=== PATIENT | female | born 1975 | race Caucasian/White ===

== ENCOUNTER 2023-03-10 19:24 | Emergency (ER) | payer BC, SELFPAY ==
[2023-03-10 19:44] VITALS: BP 146/91; PULSE 88; RESP 16; TEMP 36.7; O2SAT 96; BMI 23.4
[2023-03-10 19:55] LABS: Appearance Urine Clear (Clear); Bilirubin Urine Negative (Negative); Blood Urine Negative (Negative); Color Urine Yellow (Yellow); Glucose Urine Negative (Negative); Ketones Urine 1+ (Negative); Leukocyte Esterase Urine Negative (Negative); Nitrite Urine Negative (Negative); Protein Urine Negative (Negative); Urobilinogen Urine 0.2 (0.2-1.0)
--- NOTE | 2023-03-10 19:59 | CRLHL7_ITS ---
For Patients: As a result of the Century Cures Act, medical imaging exams and procedure reports are released immediately into your electronic medical record. You may view this report before your referring provider. If you have questions, please contact your health care provider. INDICATION: Left lower quadrant pain. TECHNIQUE: CT abdomen and pelvis acquired with 74 cc Isovue 370 IV contrast. COMPARISON: None. FINDINGS: Lower chest: Mild bibasilar atelectasis. Liver: Unremarkable. Normal in size and attenuation. No suspicious masses. Gallbladder and bile ducts: Unremarkable. No stones or inflammation. No biliary ductal dilatation. Spleen: Unremarkable. Normal in size. No masses. Adrenal glands: Unremarkable. No nodules. Pancreas: Unremarkable. No mass or inflammation. Kidneys: Unremarkable. No suspicious masses, stones, or hydronephrosis. GI tract: Normal in caliber. No evidence of obstruction. Scattered colonic diverticula in the distal colon. Minimal fat stranding adjacent to the proximal sigmoid colon. Normal appendix. Lymph nodes: No lymphadenopathy. Vasculature: Minimal scattered atherosclerotic calcifications. Omentum/Peritoneum/Abdominal Wall: Unremarkable. No sign of mass or infiltration. No free air or significant free fluid. Pelvis: Unremarkable. IUD in place. Bones: Unremarkable for age. IMPRESSION: Scattered colonic diverticula in the distal colon with minimal fat stranding adjacent to the proximal sigmoid colon, likely reflecting mild diverticulitis. Please note that all CT scans at this facility use dose modulation, iterative reconstruction, and/or weight-based dosing when appropriate to reduce radiation dose to as low as reasonably achievable. Dictated by Yo Torre MD @ 03/10/2023 9:15:41 PM (Electronically Signed)
[2023-03-10] MEDS: ONDANSETRON 2 MG/ML inj 4 MG IVP (20:28)
[2023-03-10] MEDS: KETOROLAC 30 MG/ML inj IVP (20:29)
[2023-03-10] MEDS: 0.9 % SODIUM CHLORIDE 1000 ml 1,000 ML IV (20:29)
[2023-03-10 20:41] LABS: Basophils Absolute Auto 0.04 K/uL (0.00-0.30); Basophils Percent Auto 0.4 % (0.0-3.0); Eosinophils Absolute Auto 0.04 K/uL (0.00-0.50); Eosinophils Percent Auto 0.4 % (0.0-7.0); Hematocrit 42.6 % (33.0-51.0); Hemoglobin* 14.7 gm/dL (12.0-16.0); Immature Granulocytes Abs Auto 0.01 K/uL (0.00-0.30); Immature Granulocytes Pct Auto 0.1 %; Lymphocytes Percent Auto 18.5 % (20-44); Mean Corpuscular HGB Conc 35 gm/dL (32-36); Mean Corpuscular Hemoglobin 35 pg (26-34); Mean Corpuscular Volume 101 fL (80-100); Monocytes Percent Auto 7.2 % (0.0-11.0); Neutrophils Percent Auto 73.4 % (42.0-72.0); Platelet Count* 223 K/uL (140-440); RDW Coefficient of Variation % 11.4 % (11.5-15.5); Red Blood Count 4.22 m/uL (4.00-5.20); White Blood Count* 10.62 K/uL (4.50-11.00)
[2023-03-10 20:42] LABS: Slide Review Reflex No
--- NOTE | 2023-03-10 20:42 | ED_ITS ---
HPI - Abdominal Pain General Date Seen: 03/10/23 Chief Complaint: Abdominal Pain Stated Complaint: Left side pain with nausea Time Seen by Provider: 03/10/23 19:51 Source: patient Mode of arrival: ambulatory Limitations: no limitations History of Present Illness HPI narrative: Patient is a 48-year-old female presents here with approximately a 5-6 week history of left lower quadrant pain it comes and goes but has been really consistent for the last 5 days, doubles her over and she notices when she walks, she says she feels chilled but is noted no overt fevers, her bowel movements been normal with no diarrhea noted. She has no history of vomiting but has felt some nausea. Denies any significant back pain, there is no radiation of numbness tingling to her lower extremities, she denies any vaginal discharge, or bleeding, associated with this. She has no history of a colonoscopy but her doctor has told her that she now qualifies for this and should do this. She tried some ibuprofen a couple days ago and did really notice a difference with the discomfort. She presents [facility] [place] for help with this. No significant chest pain shortness of breath coughing sore throat or any sort of viral type symptoms. There is a family history of ovarian cancer and she is deathly afraid that this me the start of it. MD elicited complaint: abdominal pain Pertinent past history: none Associated symptoms: nausea and chills Treatments prior to arrival: NSAIDs Related Data Patient : No Home Medications Medication Instructions Recorded Confirmed fluoxetine 20 mg capsule 20 mg PO DAILY 01/21/23 01/21/23 Allergies Allergy/AdvReac Type Severity Reaction Status Date / Time No Known Drug Allergies Allergy Verified 01/21/23 16:24 Review of Systems Status of ROS Reports: 10 or more systems reviewed and unremarkable except as noted in History and below [facility] Social History Smoking Status: Current every day smoker What tobacco products do you use: cigarettes Do you use any of these nicotine containing products: None Second hand tobacco smoke exposure: No How often do you have a drink containing alcohol: 4 or more times a week How many standard drinks containing alcohol do you have on a typical day: 5 or 6 How often do you have six or more drinks on one occasion: Weekly AUDIT-C Alcohol total score: 9 Non-prescribed substance use: denies use service: No Exam Narrative: Exam Narrative: Patient is speaking normally, no problem with slurring words, oriented x3. Head eyes ears nose and throat exam show equal pupils, no scleral icterus, extraocular muscles are normal, no facial droop, speech is normal, trachea normal and midline. Thyroid normal midline palpable not enlarged. Chest shows symmetrical rise bilaterally, normal auscultation with no wheezes, no increased work of breathing, no overt bruising or lesions seen, no tenderness is noted on auscultation. Heart sounds normal with no S3-S4 no murmurs clicks or gallops. Abdomen shows no obvious masses or hepatosplenomegaly, no organomegaly, bowel sounds are normal in all quadrants. Tenderness is noted in the left lower quadrant on moderate palpation, no peritoneal signs are noted.. Upper and lower extremities show normal power, normal range of motion, pulses are normal, sensations normal, fine motor movements are normal, pelvis is stable to rocking. Cervical spine shows normal range of motion, and palpably not tender. Thoracic spine shows normal range of motion, and palpably not tender, lumbar spine shows no tenderness to palpation percussion and is otherwise normal range of motion. Skin shows no rashes, petechiae or eccymosis. Const: Vital Signs, click to edit/add: Vital Signs - 24 hr 03/10/23 19:44 Temperature 98.1 F Pulse Rate [Left P ulse Oximeter] 88 Respiratory Rate 16 Blood Pressure [Ri ght Upper Arm] 146/91 H Pulse Oximetry 96 Oxygen Delivery Me thod Room Air Documenting provider has reviewed patient's vital signs: yes Course Course Hospital Course: Discussed with the patient the CT showed mild diverticulitis, I would recommend antibiotics orally, and pain medications as an outpatient follow-up colonoscopy. She was comfortable with this, we went over signs symptoms of worsening and when to re-presented. Vital Signs Vital signs: Initial Vital Signs Temperature 98.1 F 03/10/23 19:44 Temperature Source Temporal Artery Scan 03/10/23 19:44 Pulse Rate 88 03/10/23 19:44 Pulse Rhythm Regular 03/10/23 19:44 Respiratory Rate 16 03/10/23 19:44 Blood Pressure 146/91 H 03/10/23 19:44 Blood Pressure Mean 109 03/10/23 19:44 Blood Pressure Position Sitting 03/10/23 19:44 Pulse Oximetry 96 03/10/23 19:44 Oxygen Delivery Method Room Air 03/10/23 19:44 Vital Signs Temperature 98.1 F 03/10/23 19:44 Pulse Rate 88 03/10/23 19:44 Respiratory Rate 16 03/10/23 19:44 Blood Pressure 146/91 H 03/10/23 19:44 Pulse Oximetry 96 03/10/23 19:44 Oxygen Delivery Method Room Air 03/10/23 19:44 Temperature 98.1 F 03/10/23 19:44 Pulse Rate 88 03/10/23 19:44 Respiratory Rate 16 03/10/23 19:44 Blood Pressure 146/91 H 03/10/23 19:44 Pulse Oximetry 96 03/10/23 19:44 Oxygen Delivery Method Room Air 03/10/23 19:44 MDM - Abdominal Pain MDM Narrative Medical decision making narrative: During the evaluation of this patient I considered multiple differential diagnosis including life-threatening differentials which are appendicitis, aortic aneurysm, mesenteric ischemia, bowel perforation, ectopic , volvulus and bowel obstruction, other differential diagnosis include but are not limited to inflammatory bowel disease, cholecystitis, pancreatitis, hepatitis, gastritis, GERD, diverticulitis, peptic ulcer disease, pyelonephritis/UTI, renal colic/stone, pelvic inflammatory disease, cervicitis, endometritis, intrauterine , dysfunctional uterine bleeding, ovarian cyst/torsion, spontaneous as well as other etiologies Medical Records Attestation: I reviewed the patient's medical records. Lab Data Attestation: I reviewed the patient's lab results. Labs: Lab Results 03/10/23 03/10/23 Range/Units 19:45 20:30 WBC 10.62 (4.50-11.00) K/uL RBC 4.22 (4.00-5.20) m/uL Hgb 14.7 (12.0-16.0) gm/dL Hct 42.6 (33.0-51.0) % MCV 101 H (80-100) fL MCH 35 H (26-34) pg MCHC 35 (32-36) gm/dL RDW Coeff of Andra 11.4 L (11.5-15.5) % Plt Count 223 (140-440) K/uL Neut % (Auto) 73.4 H (42.0-72.0) % Lymph % (Auto) 18.5 L (20-44) % [place] % (Auto) 7.2 (0.0-11.0) % Eos % (Auto) 0.4 (0.0-7.0) % Baso % (Auto) 0.4 (0.0-3.0) % Neut # (Auto) 7.80 H (1.7-7.0) K/uL Lymph # (Auto) 2.00 (0.90-2.90) K/uL [place]pson # (Auto) 0.80 (0.00-0.90) K/UL Eos # (Auto) 0.04 (0.00-0.50) K/uL Baso # (Auto) 0.04 (0.00-0.30) K/uL Sodium 130 L (135-149) mmol/L Potassium 4.1 (3.6-5.1) mmol/L Chloride 101 (96-114) mmol/L Carbon Dioxide 19 L (20-32) mmol/L BUN 10 (5-24) mg/dL Creatinine 0.5 (0.5-1.5) mg/dL Estimated Creat Clear 130.21 Estimated GFR 116 ml/min Glucose 105 (60-115) mg/dL Calcium 9.3 (8.4-10.6) mg/dL Total Bilirubin 0.7 (0.1-1.5) mg/dL Direct Bilirubin 0.3 (0.0-0.5) mg/dL AST 39 H (12-35) U/L ALT 24 (4-35) U/L Alkaline Phosphatase 70 (40-150) U/L C-Reactive Protein < 0.5 L (0.5-1.0) mg/dL Total Protein 7.7 (6.0-8.3) g/dL Albumin 4.7 (3.3-5.0) g/dL Lipase 147 (23-300) U/L HCG, Qual Negative (Negative) Urine Color Yellow (Yellow) Urine Appearance Clear (Clear) Urine pH 5.0 (5.0-8.5) Ur Specific [place] 1.010 (1.000-1.030) Urine Protein Negative (Negative) Urine Glucose (UA) Negative (Negative) Urine Ketones 1+ A (Negative) Urine Blood Negative (Negative) Urine Nitrite Negative (Negative) Urine Bilirubin Negative (Negative) Urine Urobilinogen 0.2 (0.2-1.0) Ur Leukocyte Esterase Negative (Negative) Imaging Data CT scan - abdomen: Attestation: I have reviewed the pertinent imaging results. My impression: I will diverticulitis Radiologist's impression: Patient: LUZ BLACKBURN Facility: [facility] Site . Site : [id number] Study: CT Abdomen/Pelvis W/IV ONLY-03/10/2023 8:52:50 PM Ordering Physician: Juana Jung Final Report: INDICATION: Left lower quadrant pain. TECHNIQUE: CT abdomen and pelvis acquired with 74 cc Isovue 370 IV contrast. COMPARISON: None. FINDINGS: Lower chest: Mild bibasilar atelectasis. Liver: Unremarkable. Normal in size and attenuation. No suspicious masses. Gallbladder and bile ducts: Unremarkable. No stones or inflammation. No biliary ductal dilatation. Spleen: Unremarkable. Normal in size. No masses. Adrenal glands: Unremarkable. No nodules. Pancreas: Unremarkable. No mass or inflammation. Kidneys: Unremarkable. No suspicious masses, stones, or hydronephrosis. GI tract: Normal in caliber. No evidence of obstruction. Scattered colonic dive rticula in the distal colon. Minimal fat stranding adjacent to the proximal sigmoid colon. Normal appendix. Lymph nodes: No lymphadenopathy. Vasculature: Minimal scattered atherosclerotic calcifications. Omentum/Peritoneum/Abdominal Wall: Unremarkable. No sign of mass or infiltration. No free air or significant free fluid. Pelvis: Unremarkable. IUD in place. Bones: Unremarkable for age. IMPRESSION: Scattered colonic diverticula in the distal colon with minimal fat stranding adjacent to the proximal sigmoid colon, likely reflecting mild diverticulitis. Please note that all CT scans at this facility use dose modulation, iterative reconstruction, and/or weight-based dosing when appropriate to reduce radiation dose to as low as reasonably achievable. Dictated by Yo Torre MD @ 03/10/2023 9:15:41 PM (Electronic Signature) Discharge Plan Discharge Clinical Impression: Diverticulitis Patient Disposition: Home, Self-Care Condition: Improved Instructions: Diverticulitis (DC), Diverticulitis Diet (ED) Additional Instructions: Home rest antibiotics as directed, pain medications can also help this, but be noted that they can cause constipation, do not take alcohol with them. Or drive. I would recommend a getting a colonoscopy, follow-up if signs and symptoms of worsening such as fevers chills nausea vomiting. Activity Level: No Restrictions Prescriptions: No Action fluoxetine 20 mg capsule 20 mg PO DAILY Patient Comments: TAKE 1 CAPSULE BY MOUTH EVERY DAY Follow Up/Referrals: Provider,Not a Local [Primary Care Provider] - Stand Alone Forms: [facility] Info Instructions
[2023-03-10 20:55] LABS: Albumin* 4.7 g/dL (3.3-5.0); Chloride* 101 mmol/L (96-114)
[2023-03-10 20:56] LABS: Potassium* 4.1 mmol/L (3.6-5.1); Sodium* 130 mmol/L (135-149)
[2023-03-10 20:58] LABS: Creatinine* 0.5 mg/dL (0.5-1.5); Est. Creatinine Clearance* 130.21; Estimated Glomerular Filt Rate 116 ml/min
[2023-03-10 20:59] LABS: Alanine Aminotransferase* 24 U/L (4-35); Alkaline Phosphatase* 70 U/L (40-150); Aspartate Amino Transferase* 39 U/L (12-35); Bilirubin Direct* 0.3 mg/dL (0.0-0.5); Bilirubin Total* 0.7 mg/dL (0.1-1.5); Blood Urea Nitrogen* 10 mg/dL (5-24); Calcium* 9.3 mg/dL (8.4-10.6); Carbon Dioxide* 19 mmol/L (20-32); Glucose* 105 mg/dL (60-115); Lipase* 147 U/L (23-300); Total Protein* 7.7 g/dL (6.0-8.3)
[2023-03-10 21:03] LABS: C Reactive Protein* < 0.5 mg/dL (0.5-1.0)
[2023-03-10 21:25] LABS: HCG Qualitative* Negative (Negative)
== END 2023-03-10 21:50 | disposition home or self-care (01) ==
PROVIDERS: Emergency Provider Family Medicine
DX: K57.92 Diverticulitis of intestine, part unspecified, without perforation or abscess without bleeding (principal)
CPT/HCPCS: 36415; 74177; 80048; 80076; 81001; 81003; 83690; 84703; 85025; 86140; 96374; 96375; 99284; 99285; J1885; J2405; J7030; Q9967